=== PATIENT | female | born 1995 | race Two or more races ===

== ENCOUNTER 2024-07-01 14:20 | Emergency (ER) | payer OTHER ==
[~2024-07-01] VITALS: Ht 157.5 cm; Wt 74.8 kg
[2024-07-01] MEDS ORDERED: DUI500 PO (16:24)
== END 2024-07-01 16:45 | disposition home or self-care (01) ==
LOC: ER 14:21
DX: S91.209A Unspecified open wound of unspecified toe(s) with damage to nail, initial encounter (principal); X58.XXXA Exposure to other specified factors, initial encounter; Y93.9 Activity, unspecified; Y92.9 Unspecified place or not applicable; Y99.9 Unspecified external cause status